=== PATIENT | male | born 1960 | race Hispanic/Latino ===

== ENCOUNTER 2025-09-22 09:34 | Emergency (ER) | payer MEDICARE ==
[2025-09-22] MEDS ORDERED: GASTROGRAFIN 30 ML BOT ONE (10:40)
== END 2025-09-22 12:18 | disposition home or self-care (01) ==
LOC: ERS 09:34
DX: Z43.1 Encounter for attention to gastrostomy (principal)
CPT/HCPCS: 43762; 74018; 99283; Q9963